=== PATIENT | female | born 1940 | race Caucasian/White ===

== ENCOUNTER 2019-11-08 13:57 | Outpatient (CLI) | payer MEDICARE, OTHER ==
[~2019-11-08 13:57] MED LIST: APIX5TAB3 PO; CHOL2000 PO; HYDR-4383 PO; MELO15TA13 PO; MULT-342 PO; SERT100T PO; SOTA80TA73 PO
[2019-11-08 14:50] LABS: BASOPHILS # (AUTO) 0.1 X10'3 (0-0.2); BASOPHILS % (AUTO) 0.5 % (0-1); EOSINOPHILS # (AUTO) 0.2 X10'3 (0-0.9); EOSINOPHILS % (AUTO) 0.9 % (0-6); HEMOGLOBIN 7.4 g/dl (12.0-16.0); LYMPHOCYTES # (AUTO) 0.9 X10'3 (1.1-4.8); LYMPHOCYTES % (AUTO) 4.9 % (21-51); MEAN CORPUSCULAR HEMOGLOBIN 25.4 PG (27.0-31.0); MEAN CORPUSCULAR HGB CONC 32.2 g/dL (33.0-36.5); MEAN CORPUSCULAR VOLUME 78.9 FL (78-98); MEAN PLATELET VOLUME 7.1 FL (7.4-10.4); MONOCYTES # (AUTO) 0.7 X10'3 (0-0.9); MONOCYTES % (AUTO) 3.8 % (2-12); NEUTROPHILS % (AUTO) 89.9 % (42-75); PLATELET COUNT 641 X10'3 (140-440); RED BLOOD COUNT 2.91 X10'6 (4.20-5.60); RED CELL DISTRIBUTION WIDTH 18.4 % (11.5-14.5); WHITE BLOOD COUNT 18.9 X10'3 (4.5-11.0)
[2019-11-08 14:58] LABS: ALBUMIN 1.8 G/DL (3.4-5.0); ANION GAP 12 (8-16); BLOOD UREA NITROGEN 79 MG/DL (7-18); BUN/CREATININE RATIO 18.7 (6.6-38.0); CHLORIDE 90 MMOL/L (99-107); CREATININE 4.22 MG/DL (0.40-0.90); GLUCOSE 147 MG/DL (70-104); POTASSIUM 3.6 MMOL/L (3.5-5.1); SODIUM 127 MMOL/L (135-145); TOTAL CARBON DIOXIDE 25.2 MMOL/L (24-32); eGFR 10 ML/MIN
[2019-11-08 15:02] LABS: PARTIAL THROMBOPLASTIN TIME 34 SECONDS (22-32)
[2019-11-08 15:21] LABS: TOTAL CELLS COUNTED 100
[2019-11-08 15:23] LABS: ANISOCYTOSIS 2+; HYPOCHROMASIA 1+; MICROCYTOSIS 1+; PLATELET ESTIMATE INCREASED; POLYCHROMASIA 1+; TARGET CELLS FEW
== END 2019-11-08 23:59 | disposition home or self-care (01) ==
LOC: SSTAY O 13:57 → EDSTATUS 11-13 18:30
PROVIDERS: ATTEND Internal Medicine Interventional Cardiology
DX: I48.0 Paroxysmal atrial fibrillation (principal); Z79.899 Other long term (current) drug therapy
CPT/HCPCS: 36415; 80048; 85025; 85610; 85730